=== PATIENT | male | born 1975 | race Caucasian/White ===

== ENCOUNTER 2019-01-04 13:06 | Observation (INO) ==
--- NOTE | 2019-01-04 13:56 | Emergency Department Note ---
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 Since then patient has had neck pain and shoulder pain, has continued to go to work. Patient has had difficulty sleeping due to the pain which he rates as throbbing in nature and 8 out of 10 in severity. Today patient asked his to take him to urgent care because he did not feel well from not being able to sleep and having the pain, while he was at urgent care he stood up after he was being called and his right leg fell out from underneath him, and since then he has been unable to really lift the leg, and has had decreased sensation in the leg. Patient is denying headache, chest pain, shortness of breath, vomiting, constipation, diarrhea, abdominal pain, difficulty urinating. Pt states he feels a little nauseated from the pain. Pain Scale: 9 - Related Data Home Medications Medication Instructions Recorded Confirmed BuPROPion XL (24 HR) [Wellbutrin 150 mg PO DAILY 01/04/19 01/04/19 XL] Citalopram [CeleXA] 20 mg PO DAILY 01/04/19 01/04/19 Allergies Allergy/AdvReac Type Severity Reaction Status Date / Time No Known Allergies Allergy Verified 01/04/19 11:24 All systems ED: reviewed and negative except as stated. Constitutional: Denies: fever, chills Cardiovascular: Denies: chest pain Respiratory: Denies: cough, dyspnea, wheezes Gastrointestinal: Reports: nausea. Denies: abdominal pain, vomiting, diarrhea Genitourinary: Denies: urgency, dysuria Musculoskeletal: Reports: neck pain. Denies: back pain Integumentary: Denies: rash, abrasion Neurological: Reports: weakness, numbness, paresthesias. Denies: headache Psychiatric: Reports: anxiety, depression Endocrine: Denies: fatigue, heat or cold intolerance Hematological/Lymphatic: Denies: easy bleeding, easy bruising Allergic/Immunologic: Denies: facial swelling, urticaria Past Medical History - Past Medical History Medical history: Reports: no medical history, hypertension Psychiatric history: Reports: anxiety, depression - Social History Smoking Status: Never smoker Smokeless Tobacco Status: No Alcohol use: Reports: occasionally Drug use: Reports: none Physical Exam General: A&O x 3. No acute distress. Well developed, well nourished. Head: atraumatic, normocephalic. ENT: No conjunctival injection, no scleral icterus. PERRLA. EOMI. Oropharynx non- erythematous. mucous membranes moist. Neuro: no speech deficit, no facial droop, mentating well. CN II-XII grossly normal. christy UE 5/5, LLE 5/5, RLE 3/5. MSK: rotator cuff muscles strength intact bilaterally Pulm: Lungs CTAB A/P. No wheezes, rales, ronchi. Cardio: RRR no m/r/g. Chest not tender to palpation. Abd: Soft, non-distended. Normoactive bowel sounds. Non-tender to palpation. No guarding. Non rigid. Extremities: Radial pulses 2+ christy, dorsalis pedis/posterior tibialis 2+ christy. No LE edema. No cyanosis, clubbing. Skin: warm, dry, intact. No rashes. Psych: Appropriate mood and affect. Answers questions appropriately. Cooperative with exam. - General Limitations: no limitations General appearance: alert Course Course Narrative: Presentation concerning for herniated discs but sudden presentation is concerning for other neurologic findings. Will obtain Head CT, Cervical/Thoracic/Lumbar CT, CBC, BMP, CXR, EKG, Troponin. Suspect will need admission for MRI and further workup as he still is unable to use RLE from hip down. Vital Signs Temperature 98.7 F 01/04/19 13:14 Pulse Rate 81 01/04/19 13:14 Respiratory Rate 16 01/04/19 13:14 Blood Pressure 154/97 01/04/19 13:14 O2 Sat by Pulse Oximetry 98 01/04/19 13:14 Temperature 98.2 F 03/31/19 21:19 Pulse Rate 95 01/04/19 21:19 Respiratory Rate 16 01/04/19 21:19 Blood Pressure 111/72 01/04/19 21:19 O2 Sat by Pulse Oximetry 94 01/04/19 21:19 Oxygen Delivery Oxygen Delivery Room Air Medical Decision Making - MDM Narrative Medical decision making narrative: Pts MRI was concerning for cord compression of C-spine, so patient was admitted to orthopedics, Dr. Shelby, for further workup and treatment. Pt was given pain control while in the department, and his pain was brought under better control. Pt verbalized understanding and agreement with the plan. Pt remained stable while in the department. Pt was given an opportunity to ask questions and all of his concerns were addressed. - Medical Records Medical records reviewed: Yes I reviewed the patient's medical records. - Lab Data Lab results reviewed: Yes I reviewed the patient's lab results. Result diagrams: 01/04/19 14:57 01/04/19 14:57 Lab Results 01/04/19 01/04/19 Range/Units 14:57 14:57 WBC 9.2 (4.3-11.1) K/mcL RBC 5.27 (4.19-5.50) M/mcL Hgb 15.2 (12.9-16.9) g/dL Hct 46.2 (37.5-50.1) % MCV 87.7 (83.0-100.0) fL MCH 28.8 (28.0-33.3) pg MCHC 32.9 (31.6-35.5) g/dL RDW 13.7 (11.5-14.5) % Plt Count 275 (140-400) K/mcL MPV 8.9 L (9.4-12.4) fL Immature Gran % 0.3 (0-4) % Seg Neutrophils % 83.7 % Lymphocytes % 9.0 % Monocytes % 4.8 % Eosinophils % 1.4 % Basophils % 0.8 % Neutrophils # 7.7 (1.6-8.9) K/mcL Lymphocytes # 0.8 (0.6-4.6) K/mcL Monocytes # 0.4 (0.0-1.3) K/mcL Eosinophils # 0.1 (0.0-0.6) K/mcL Basophils # 0.1 (0.0-0.2) K/mcL Sodium 139 (136-145) mEq/L Potassium 4.2 (3.5-5.1) mEq/L Chloride 104 (98-107) mEq/L Carbon Dioxide 28 (23-29) mEq/L BUN 10 (6-20) mg/dL Creatinine 0.91 (0.70-1.30) mg/dL Est GFR ( Amer) > 60 (> 60) Est GFR (Non-Af Amer) > 60 (> 60) BUN/Creatinine Ratio 11 (6-26) Glucose 112 H (70-105) mg/dL Calculated Osmolality 288 (280-300) Calcium 9.3 (8.6-10.3) mg/dL Troponin I < 0.03 (< 0.04) ng/mL - EKG Data EKG #1 EKG attestation: Yes I reviewed and interpreted this EKG. EKG results narrative: HR 81, rhythm sinus, axis normal. IL 123, QRS 94, QTc 429. No evidence of ST elevation or depression. Attestation Statement - Attestation Attestation: Resident Attestation: I examined this patient and my medical decision making was reviewed with the Resident Physician. I agree with the documented findings, disposition and treatment plan as described except to the extent set forth below. We independently had [id number] contact with the patient. Patient presenting to the emergency department for evaluation of left-sided neck pain and right leg weakness. Overall the patient has a job requiring repetitive motion of the left arm. The patient heard a popping sensation. Patient states that he has been having pain within the cervical region. Overall went to urgent care to have it evaluated. Well training get up out of the chair patient had loss of use of the right leg. Patient is unable to get the right leg off the bed. Patient has decreased sensation to the right leg. Patient has no numbness or tingling throughout the groin. Rectal tone is intact. Due to the cervical pain with acute onset neurologic deficit of the right leg. Patient will undergo further immediate CT imaging as MRI orders are also placed for further evaluation of possible underlying nerve injury. If CT gives definitive answer, MRI will not be needed. Patient is not in significant pain. No pain medication required at this time. Patient will also undergo basic blood work secondary to requiring IV contrast. Case was discussed with Dr. Shelby. Patient be kept at her facility for likely OR tomorrow. Overall prognosis is good. This was relayed to the patient. Patient is agreeable to stay at her facility for further management. Patient understands the need for admission. All questions were answered at bedside.
[2019-01-04 15:12] LABS: Basophils # 0.1 K/mcL (0.0-0.2); Basophils % 0.8 %; Eosinophils # 0.1 K/mcL (0.0-0.6); Eosinophils % 1.4 %; Hematocrit 46.2 % (37.5-50.1); Hemoglobin 15.2 g/dL (12.9-16.9); Immature Granulocytes % 0.3 % (0-4); Lymphocytes # 0.8 K/mcL (0.6-4.6); Mean Corpuscular HGB Conc 32.9 g/dL (31.6-35.5); Mean Corpuscular Hemoglobin 28.8 pg (28.0-33.3); Mean Corpuscular Volume 87.7 fL (83.0-100.0); Mean Platelet Volume 8.9 fL (9.4-12.4); Monocytes # 0.4 K/mcL (0.0-1.3); Monocytes % 4.8 %; Neutrophils # 7.7 K/mcL (1.6-8.9); Platelet Count 275 K/mcL (140-400); Red Blood Count 5.27 M/mcL (4.19-5.50); Red Cell Distribution Width 13.7 % (11.5-14.5); Segmented Neutrophils % 83.7 %
[2019-01-04 15:30] LABS: BUN/Creatinine Ratio 11 (6-26); Blood Urea Nitrogen 10 mg/dL (6-20); Calcium 9.3 mg/dL (8.6-10.3); Carbon Dioxide 28 mEq/L (23-29); Chloride 104 mEq/L (98-107); Glucose 112 mg/dL (70-105); Osmolality,Calculated 288 (280-300); Potassium 4.2 mEq/L (3.5-5.1); Sodium 139 mEq/L (136-145); Troponin I < 0.03 ng/mL (< 0.04); eGFR For Non-African Americans > 60 (> 60)
[2019-01-04] MEDS ORDERED: Gadolinium Contrast Agent (WT Based) IV PRN (15:31)
[2019-01-04] MEDS ORDERED: *HR* OxyCODONE Immed Rel 5 MG TABLET PO ONE (15:54)
[2019-01-04 22:23] LABS: INR 1.1
--- NOTE | 2019-01-05 00:26 | Internal Medicine Consult Note ---
Date of Encounter: 01/04/19 Time of Encounter: 22:30 - Assessment and Plan (1) Disc disorder of cervical region Current Visit: Yes Status: Acute Assessment and plan: Acute bulging disc in neck. Probable surgery. Hospitalists consulted for surgical clearance. EKG shows SR. Echocardiogram ordered d/t presence of regular irregular HR. No hx of cardiac disease dxd. Only PMH is anxiety and depression. Revised cardiac risk index for preoperative risk: 3.9% based on no high risk surgery, no history of ischemic heart disease, no history of congestive heart failure, history of cerebrovascular disease, no preoperative treatment with insulin, no preoperative creatinine greater than 2 mg/dL. Pt. is high risk for further morbidity and complications based on current inability to use BLEs which has progressed over the past several days, presence of murmur, current morbid obesity, hx of tobacco abuse and current use of dip. Inpatient. (2) Inability to walk Current Visit: Yes Status: Acute Assessment and plan: Acute inability to walk that began today while in the ED. Pt. reports bulging disc in cervical region. Unable to raise legs off of bed and reports numbness/tingling in BLEs. Bed rest. Falls/safety precautions. Up with assist post-surgery. (3) Neck pain Current Visit: Yes Status: Acute Assessment and plan: Acute neck pain d/t bulging disc in neck. Probable surgery. Hospitalists consulted for surgical clearance. (4) Numbness and tingling Current Visit: Yes Status: Acute Assessment and plan: Acute numbness/tingling in BLEs. Severe weakness present. Bed rest. Falls/safety precautions. Up with assist only post-surgery. (5) Anxiety and depression Current Visit: Yes Status: Chronic Assessment and plan: Hx of chronic anxiety and depression. SSRI continuation contraindicated prior to surgical procedures, so medications held until post-surgery. (6) DVT prophylaxis Current Visit: Yes Status: Acute Assessment and plan: Bilateral SCDs on LEs for DVT prophylaxis d/t probable surgery. - Time Spent With Patient Total time spent is greater than 50% in coordination of care (as documented) at patient's floor/unit and/or counseling patient: Greater than 35 minutes Internal Medicine - CN: HPI - Data of Consult Patient: new to practice Consult date: 01/04/19 Requesting Physician: James Shelby Jr MD - Consult Narrative Reason for consult: Pre-surgery clearance History of present illness: Mr. Gonzalez is a 43 year old male w/PMH of depression presents for Hospitalist consult for pre-surgery clearance by Dr. Shelby. 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 Patient stated he had minor neck and shoulder discomfort which progressed over several days. Upon arriving to the ED today patient became unable to walk and felt weakness and numbness/tingling in his bilateral lower extremities. Patient denies previous symptoms such as this. Denies any other medical history. Patient denies recent illness, fever, ch ills, nausea, vomiting, headache, changes in vision, unusual bleeding, abdominal pain, diarrhea, constipation, cough, chest pain, chest congestion, shortness of breath, dizziness, lightheadedness, pre-syncope, or syncope. Past Med Surg Social Fam HX - Past Medical History Source: patient, old records reviewed, obtained from family Medical history: no medical history Psychiatric history: anxiety, depression - Past Surgical History Surgical History: tonsilectomy - Social History Smoking Status: Former smoker Packs per day: 2 Packs per week - Reports quitting 15 years ago Smokeless Tobacco Status: Yes (Dip) Alcohol use: occasionally Drug use: none Occupational status: employed Current living situation: Home, With Family Activity Level: Independent ambulation Recent Out of Country Travel Within the Last 8 Weeks: No Exposure or Possible Exposure to Illness During Travel: No - Family History Father Race: Family Member Ethnicity: Non- Living Status: Still Living Hx Family Cardiac Disorders: Yes (HTN) Hx Family Respiratory Disorders: Yes (COPD) Mother Race: Family Member Ethnicity: Non- Living Status: Still Living Hx Family Medical Disorders: No Brother Race: Family Member Ethnicity: Non- Living Status: Still Living Hx Family Cardiac Disorders: Yes (HTN) - Constitutional Constitutional: as per HPI, fatigue, weakness - EENT Eyes: as per HPI Ears: as per HPI Nose, mouth and throat: as per HPI - Breasts Breasts: as per HPI - Cardiovascular Cardiovascular ROS IM: as per HPI - Respiratory Respiratory: as per HPI - Gastrointestinal Gastrointestinal: as per HPI - Genitourinary Genitourinary ROS male: as per HPI, urinary hesitancy - Musculoskeletal Musculoskeletal ROS IM: as per HPI, neck pain, numbness, tingling - Integumentary Integumentary IM: as per HPI - Neurological Neurological ROS: as per HPI - Psychiatric Psychiatric: anxiety, depression - Endocrine Endocrine IM: as per HPI - Hematologic/Lymphatic Hematologic/Lymphatic: as per HPI - Allergic/Immunologic Allergic/Immunologic: as per HPI Internal Medicine - CN: Meds BuPROPion XL (24 HR) [Wellbutrin XL] 150 mg PO DAILY 01/04/19 [History] Citalopram [CeleXA] 20 mg PO DAILY 01/04/19 [History] Allergy/AdvReac Type Severity Reaction Status Date / Time No Known Allergies Allergy Verified 01/04/19 11:24 Hospitalist - CN: Exam - Constitutional Vitals: Temp Pulse Resp BP Pulse Ox 98.1 F 91 16 132/78 95 01/04/19 23:17 01/04/19 23:17 01/04/19 23:17 01/04/19 23:17 01/04/19 23:17 General appearance IM: Present: cooperative, mild distress (Numbness, tingling in BLEs, weakness in UEs and LEs (worse in LEs)), A&O X 3, morbidly obese, pleasant, answers questions appropriately Exam: Patient examined at bedside. UE weakness on exam that is equal bilaterally. [employer] consistent but weaker than expected. No pronator drift, focal deficits, slurred speech noted. Pt. unable to lift legs off of bed. Pt. is able to feel soft and sharp touch to BLEs, but severe weakness present along w/numbness and tingling. Denies any other sx at this time. VS: 98.2 temp, HR 95, RR 16, BP 111/72, 94% SPO2 on room air. - Head Head exam: Present: atraumatic - Eye Eye exam: Present: normal appearance, PERRL, conjuntiva pink, sclera anicteric Pupils: Present: normal accommodation, PERRL - ENT ENT exam: Present: normal exam - Neck Neck exam general surgery: Present: normal inspection - Respiratory Respiratory exam: Present: CTAB - Cardiovascular Cardiovascular exam IM: Present: irregular rhythm Additional comments: Pause in HR at approx every 21st to 22nd beat. Pt. reports periods of flutter. - GI/Abdominal GI/Abdominal exam IM: Present: soft, no peritoneal signs - Rectal Rectal exam: Present: deferred - Additional comments: exam deferred. - Extremities Exam Additional comments: LE weakness to the point where pt. cannot raise legs off of bed. - Neurological Exam Neurological exam: Present: alert, oriented X3 - Psychiatric Psychiatric exam: Present: normal affect, normal mood - Skin Skin exam IM: Present: dry, intact Internal Medicine - CN: Reslt - Labs CBC & Chem 7: 01/04/19 14:57 01/04/19 14:57 Labs: Short CBC 01/04/19 Range/Units 14:57 WBC 9.2 (4.3-11.1) K/mcL Hgb 15.2 (12.9-16.9) g/dL Hct 46.2 (37.5-50.1) % Plt Count 275 (140-400) K/mcL Neutrophils # 7.7 (1.6-8.9) K/mcL BMP 01/04/19 14:57 Sodium 139 Potassium 4.2 Chloride 104 Carbon Dioxide 28 BUN 10 Creatinine 0.91 Glucose 112 H Calcium 9.3 Cardiac Enzymes 01/04/19 Range/Units 14:57 Troponin I < 0.03 (< 0.04) ng/mL - ABG Interpretation ABG results: PT/INR, D-dimer PT 12.0 Seconds (9.4-12.1) 01/04/19 21:51 - EKG Data EKG shows normal: sinus rhythm - EKG Data Prior EKG available for review: no EKG comments: 01/05/19 06:29 EKG dated 01/04/19 shows sinus rhythm. - Impressions Impressions Cervical Spine CT 01/04/19 13:22 IMPRESSION: No acute abnormality of the cervical spine. D/ / Freddy Mitchell MD / Freddy Mitchell MD Interpreting Provider: Freddy Mitchell MD Head CT 01/04/19 13:22 IMPRESSION: No acute intracranial abnormality. D/ / Freddy Mitchell MD / Freddy Mitchell MD Interpreting Provider: Freddy Mitchell MD Lumbar Spine CT 01/04/19 13:22 IMPRESSION: Unremarkable non-contrast CT of the lumbar spine. D/ / Ronald Moon MD / Ronald Moon MD Interpreting Provider: Ronald Moon MD Thoracic Spine CT 01/04/19 13:30 IMPRESSION: Unremarkable CT of the thoracic spine. D/ / Freddy Mitchell MD / Freddy Mitchell MD Interpreting Provider: Freddy Mitchell MD Chest X-Ray 01/04/19 13:45 IMPRESSION: Bibasilar atelectasis D/ / Abran Best MD / Abran Best MD Interpreting Provider: Abran Best MD Cervical Spine MRI 01/04/19 15:31 IMPRESSION: Multilevel degenerative disc disease throughout the cervical spine as described. Findings are greatest at C6-7 where there is a large central disc herniation with severe cord compression and canal narrowing. See above for details of each level. The findings were sent to the Radiology Results Communication [facility] at 7:20 pm on 01/04/2019to be communicated to a licensed caregiver. D/ / James Rolle Interpreting Provider: James Rolle Lumbar Spine MRI 01/04/19 15:31 IMPRESSION: Thoracic spine: Multilevel degenerative disc disease in the thoracic spine as described. See above for details of each level. There is no pathologic enhancement in the thoracic spine Lumbar spine: Multilevel degenerative disc disease throughout the lumbar spine as described. There is no pathologic enhancement in the lumbar spine. See above for details of each level D/ / James Rolle / James Rolle Interpreting Provider: James Rolle Thoracic Spine MRI 01/04/19 15:31 IMPRESSION: Thoracic spine: Multilevel degenerative disc disease in the thoracic spine as described. See above for details of each level. There is no pathologic enhancement in the thoracic spine Lumbar spine: Multilevel degenerative disc disease throughout the lumbar spine as described. There is no pathologic enhancement in the lumbar spine. See above for details of each level D/ / James Rolle / James Rolle Interpreting Provider: James Rolle - Diagnostic Studies Other Images Additional comments: Impressions Cervical Spine CT 01/04/19 13:22 IMPRESSION: No acute abnormality of the cervical spine. D/ / Freddy Mitchell MD / Freddy Mitchell MD Interpreting Provider: Freddy Mitchell MD Lumbar Spine CT 01/04/19 13:22 IMPRESSION: Unremarkable non-contrast CT of the lumbar spine. D/ / Ronald Moon MD / Ronald Moon MD Interpreting Provider: Ronald Moon MD Thoracic Spine CT 01/04/19 13:30 IMPRESSION: Unremarkable CT of the thoracic spine. D/ / Freddy Mitchell MD / Freddy Mitchell MD Interpreting Provider: Freddy Mitchell MD Cervical Spine MRI 01/04/19 15:31 IMPRESSION: Multilevel degenerative disc disease throughout the cervical spine as described. Findings are greatest at C6-7 where there is a large central disc herniation with severe cord compression and canal narrowing. See above for details of each level. The findings were sent to the Radiology Results Communication Center at 7:20 pm on 01/04/2019to be communicated to a licensed caregiver. D/ / James Rolle / James Rolle Interpreting Provider: James Rolle Lumbar Spine MRI 01/04/19 15:31 IMPRESSION: Thoracic spine: Multilevel degenerative disc disease in the thoracic spine as described. See above for details of each level. There is no pathologic enhancement in the thoracic spine Lumbar spine: Multilevel degenerative disc disease throughout the lumbar spine as described. There is no pathologic enhancement in the lumbar spine. See above for details of each level D/ / James Rolle / James Rolle Interpreting Provider: James Rolle Thoracic Spine MRI 01/04/19 15:31 IMPRESSION: Thoracic spine: Multilevel degenerative disc disease in the thoracic spine as described. See above for details of each level. There is no pathologic enhancement in the thoracic spine Lumbar spine: Multilevel degenerative disc disease throughout the lumbar spine as described. There is no pathologic enhancement in the lumbar spine. See above for details of each level D/ / James Rolle / James Rolle Interpreting Provider: James Rolle Chest x-ray Additional comments: Impressions Chest X-Ray 01/04/19 13:45 IMPRESSION: Bibasilar atelectasis D/ / Abran Best MD / Abran Best MD Interpreting Provider: Abran Best MD CT scan - head Additional comments: Impressions Head CT 01/04/19 13:22 IMPRESSION: No acute intracranial abnormality. D/ / rFeddy Mitchell MD / Freddy Mitchell MD Interpreting Provider: Freddy Mitchell MD Consult Discharge Plan - Plan Referrals: Yonathan Cho MD [Primary Care Provider] -
[2019-01-05] MEDS ORDERED: *HR* HYDROcodone/Acet 5/325 mg TABLET PO PRN (01:33)
[2019-01-05] MEDS ORDERED: Acetaminophen 325 MG TABLET PO PRN ×2 (01:33→20:34)
[2019-01-05] MEDS ORDERED: *HR* OxyCODONE Immed Rel 5 MG TABLET PO PRN (01:34)
--- NOTE | 2019-01-05 07:49 | Spine - History & Physical Rep ---
Date of Encounter: 01/05/19 Time of Encounter: 07:46 Assessment and Plan (1) Cervical disc herniation Current visit: Yes Status: Acute On exam the patient is awake and alert complaining of some neck pain and mild distress. Afebrile vital signs stable. Extraocular muscles are intact. Trachea is midline. Neck is supple. There is no JVD. Lungs are clear. Cardiovascular is regular rate and rhythm. Abdomen is soft nontender nondistended. His hips move symmetrically. He is unable to lift his legs off the bed bilaterally. His strength is 2 out of 5 on a motor scale in these muscle groups. This includes hamstrings, quadriceps, dorsiflexion, p lantarflexion. He has an equivocal Fercho sign. He has no clonus. Sensations intact to light touch in the lower extremities. MRI of the cervical, thoracic, and lumbar spine reveals severe stenosis and cord compression in part due to large disc herniation at C6-7. There are multilevel degenerative changes in the lumbar spine with multilevel foraminal stenosis but no severe thecal sac compression. Impression: 1) cervical disc herniation 2) cervical stenosis 3) spinal cord compression 4) bilateral leg weakness 5) inability to walk Plan: Due to his concerning severe weakness and risk for further or permanent neurologic injury I find it reasonable consider surgery in the form of an anterior cervical decompression and fusion C6-7. Risks benefits possible competitions and alternatives were discussed and the patient would like to proceed. Patient will undergo medical optimization and clearance measures prior to surgical intervention. (2) Cervical stenosis of spinal canal Current visit: Yes Status: Acute (3) Spinal cord compression Current visit: Yes Status: Acute (4) Leg weakness, bilateral Current visit: Yes Status: Acute History of Present Illness Chief complaint: Unable to walk or move her legs, leg weakness, neck pain HPI: Mr. Gonzalez is a 43 year old male who reports pain in neck which occurred while at work turning crank on a machine his neck popped several times several days ago. Patient stated he had neck and predominantly left shoulder discomfort which progressed over several days. He also had paresthesias in the bilateral lower extremities. This progressed such that he was unable to move his legs or walk so he came to the emergency department. Workup by the emergency department revealed spinal cord compression so he was admitted for definitive management. He denies fevers chills or bowel bladder symptomatology. Past Med Surg Social Fam HX - Past Medical History Medical history: no medical history Psychiatric history: anxiety, depression - Past Surgical History Surgical History: tonsilectomy - Social History Smoking Status: Former smoker Packs per day: 2 Packs per week - Reports quitting 15 years ago Smokeless Tobacco Status: Yes (Dip) Alcohol use: occasionally Drug use: none - Family History Father Race: Family Member Ethnicity: Non- Living Status: Still Living Hx Family Cardiac Disorders: Yes (HTN) Hx Family Respiratory Disorders: Yes (COPD) Mother Race: Family Member Ethnicity: Non- Living Status: Still Living Hx Family Medical Disorders: No Brother Race: Family Member Ethnicity: Non- Living Status: Still Living Hx Family Cardiac Disorders: Yes (HTN) Medications and Allergies BuPROPion XL (24 HR) [Wellbutrin XL] 150 mg PO DAILY 01/04/19 [History] Citalopram [CeleXA] 20 mg PO DAILY 01/04/19 [History] Allergy/AdvReac Type Severity Reaction Status Date / Time No Known Allergies Allergy Verified 01/04/19 11:24 Results - Labs Result Diagrams: 01/04/19 14:57 01/04/19 14:57 Labs: Abnormal lab results MPV 8.9 fL (9.4-12.4) L 01/04/19 14:57 Glucose 112 mg/dL (70-105) H 01/04/19 14:57 H & H 01/04/19 Range/Units 14:57 Hgb 15.2 (12.9-16.9) g/dL Hct 46.2 (37.5-50.1) % All other labs normal.
[2019-01-05] MEDS ORDERED: Bacitracin 50,000 UNIT, Polymyxin B Sulfate 500,000 UNIT, Sodium Chloride IRRigation 1,... IR ONE (08:00)
--- NOTE | 2019-01-05 15:43 | Anesthesia Evaluation PreOp ---
Date of Encounter: 01/05/19 Time of Encounter: 15:45 - Past History Planned Operation: ACDF C6-7 Cardiac History: HTN Pulmonary History: Denies Any Significant HX CURRICULUM COACH History: Denies Any Significant HX Other Medical History: Denies Any Significant HX, Other (Obese) Anesthesia History: No Prior Anesthetic Complications Alcohol Use: occasionally Drug use: none Medications and Allergies BuPROPion XL (24 HR) [Wellbutrin XL] 150 mg PO DAILY 01/04/19 [History] Citalopram [CeleXA] 20 mg PO DAILY 01/04/19 [History] Allergy/AdvReac Type Severity Reaction Status Date / Time No Known Allergies Allergy Verified 01/04/19 11:24 - Meds/Allergy Pre-op Review Medications Reviewed: Yes Allergies Reviewed: Yes Beta Blockers on Current Med List: No Anesthesia Results - Labs 01/04/19 14:57 01/04/19 14:57 - Imaging EKG: report reviewed (SR) Additional studies: ECHO EF60%, no pulm htn, no valvular dysfunction Anesthesia Exam O2 Sat Height 1.73 m Weight 119.5 kg Weight 119.6 kg O2 Sat by Pulse Oximetry 95 O2 Sat by Pulse Oximetry 97 O2 Sat by Pulse Oximetry 96 O2 Sat by Pulse Oximetry 95 O2 Sat by Pulse Oximetry 94 O2 Sat by Pulse Oximetry 96 O2 Sat by Pulse Oximetry 98 Vital Signs Temp Pulse Resp BP Pulse Ox 98.7 F 81 16 154/97 98 01/04/19 13:14 01/04/19 13:14 01/04/19 13:14 01/04/19 13:14 01/04/19 13:14 Height: 5'8 Weight: 263 lbs NPO (# of Hours): MN Pain Scale: 0 - HEENT Pupil (Motor): Pupils equal, EOMI Mallampati: III Teeth: Normal Oral Opening: Less than or equal to 3 (minimal neck extension) - CURRICULUM COACH LOC: Oriented CURRICULUM COACH Motor: Deficit RUE (slight weakness), Deficit LUE (slight weakness), Deficit RLE (weakness), Deficit LLE (paresthesia) CURRICULUM COACH Sensory: Normal: RUE, LUE, LLE, Face, Deficit: RLE (paresthesia) - Cardiac Rhythm: Regular Murmur: None JVD: No Carotid Bruit: No - Pulmonary Breath Sounds: bilateral Clear Respiratory Effort: Symmetrical Anesthesia Assess/Plan ASA Score: 2 Level of consciousness: Cooperative, Oriented Anesthetic Plan: General Autologous Blood: No Monitoring Plan: Standard Monitors Recovery Plan: PACU (Discussed GA, agrees to proceed)
[2019-01-05] MEDS ORDERED: Acetaminophen IV 1,000 MG/100 ML INFUS..BTL ONE (15:49)
[2019-01-05] MEDS ORDERED: Famotidine 20 MG/2 ML VIAL ONE (15:49)
[2019-01-05] MEDS ORDERED: *HR* Midazolam HCl 2 MG/2 ML VIAL ONE (16:28)
[2019-01-05] MEDS ORDERED: *HR* FentaNYL (PF) 100 MCG/2 ML VIAL ONE (16:28)
[2019-01-05] MEDS ORDERED: *HR* Propofol 200 MG/20 ML VIAL IVP ONE (16:28)
[2019-01-05] MEDS ORDERED: Ondansetron 4 MG/2 ML VIAL ONE (16:30)
[2019-01-05] MEDS ORDERED: *HR* Succinylcholine 200 MG/10 ML VIAL IVP ONE (16:30)
[2019-01-05] MEDS ORDERED: Lidocaine -MPF 2% 2 ML VIAL ONE (16:30)
[2019-01-05] MEDS ORDERED: Dexamethasone 4 MG/ML VIAL ONE (16:30)
[2019-01-05] MEDS ORDERED: *HR* Remifentanil 1 MG VIAL IVP ONE ×2 (16:32)
[2019-01-05] MEDS ORDERED: Propofol 500 MG/50 ML INFUS..BTL ONE ×2 (16:42→17:23)
[2019-01-05] MEDS ORDERED: EPHEDrine 50 MG/ML VIAL ONE (17:20)
[2019-01-05] MEDS ORDERED: *HR* HYDROMORPHONE 2 MG/ML VIAL ONE (18:43)
--- NOTE | 2019-01-05 18:52 | Event Note ---
Date of Encounter: 01/05/19 Time of Encounter: 11:00 Patient seen and evaluated by nocturnalist earlier this morning and also eval uated by myself. Patient has been admitted to neurosurgery service for repair of cervical disc herniation. Patient should continue home medications for mood disorder. Will follow along for medical management.
--- NOTE | 2019-01-05 18:58 | Orthopedic Operative Note ---
Date of procedure: 01/05/19 Pre-op diagnosis: Cervical stenosis, spinal cord compression, leg weakness Post-op diagnosis: same Operation/Findings: Anterior cervical decompression and fusion C6-7: The patient was brought to the operating room and placed supine on the operating room table. Successful general endotracheal anesthesia intubation was performed. Neurophysiologic monitoring personnel placed leads on the upper and lower extremities as well as the cranium for EMG monitoring purposes. Appropriate baseline potentials were noted by the neurophysiologic monitoring staff. Goodman catheter was placed prior to positioning. Compression boots and stockings were placed for deep vein thrombosis prophylaxis. Padding was also placed all bony prominences including the ulnar nerve near the medial epicondyles of the elbows were appropriately padded. Mild traction was placed on the bilateral shoulders and taped into place. Preoperative antibiotics were administered. The area from the mandible bilaterally to the upper thoraces was prepped and draped in the usual sterile fashion. A transverse incision was made at the level of the cricoid cartilage which is approximately 3 cm in length and extended from the midline of the cervical spine laterally towards the sternocleidomastoid muscle on the left. We then performed standard medial approach to the carotid sheath. Sponges were used to tease the fascial medial to the sternocleidomastoid muscle while carefully controlling and palpating the carotid artery. Using careful dissection we were able to get to the level of the anterior vertebral bodies and longus coli muscles. The spinal needle was placed at the appropriate C6-7 level, and intraoperative radiograph was obtained which was a cervical spine lateral radiograph. The needle and radiograph confirmed we were at the correct C6-7 operative level. We further exposed this level by using Bovie cautery under the medial edge of the longus coli muscles to allow them to be retracted approximately 2 mm laterally on each side. An 11 blade was used to perform anterior discectomy at the appropriate C6-7 level after an initial annulotomy of the anterior longitudinal ligament and annulus was performed. Further disc material was removed with pituitary Rongeurs. Subsequently, Synthes pins were placed at the C6 and C7 vertebral bodies respectively to provide distraction. We then used a Trimline cervical retractor which was placed in both medial and lateral as well as inferior superior direction to allow full visualization of the appropriate C6-7 disc and C6 and C7 vertebral bodies. The Leica microscope was brought to the field and the remainder of the procedure was performed under the guidance of this microscope. Using pituitary rongeurs and small curettes, various micro-instruments, a full discectomy was performed at the appropriate C6-7 level. The posterior longitudinal ligament was encountered and appeared partially calcified. A portion of this ligament was removed. After complete and thorough discectomy and removal of spondylitic material was performed the endplates of the C6 and C7 vertebral bodies were prepared with a bur until allow bleeding of cancellous bone. A 9mm trial graft was evaluated and appeared to fit quite well within the excised disc space. A cortico-cancellus allograft of 9 mm was utilized, carefully tapped into place within the excised disc space with the aid of a bone tamp. It was seated approximately 2 mm from the anterior edge of the cortex of the adjacent vertebral bodies. A cervical plate was then placed on the anterior aspect of the C6 and C7 vertebral bodies. The plate was placed in the midline position after drilling four 13 mm self tapping screws and inserting them. They were locked in place using standard Venture plate maneuvers. At this point a lateral radiograph of the cervical spine was obtained and showed satisfactory position of the graft and plate. The wound was copiously irrigated and bleeders encountered were cauterized using Bovie cautery. Platysma was closed with interrupted 2-0 Vicryl sutures. Running 3-0 Monocryl suture was used for skin closure. Sterile dressing was placed over the neck wound. The patient was transferred to a hospital bed and extubated. The patient was noted to be fully motor and sensory intact in the recovery room at the end of the procedure. The medications. All sponge instrument and needle counts were correct at the end of the procedure. Anesthesia: GETA Surgeon: James Shelby Jr Was there an contract administrative assistant present: No Estimated blood loss (cc): 20 Specimen: None Condition: stable Disposition: PACU
[2019-01-05] MEDS ORDERED: *HR* HYDROmorphone (PF) 1 MG/ML SYRINGE IVP PRN (19:17)
[2019-01-05] MEDS ORDERED: Ondansetron 4 MG/2 ML VIAL IVP ONE (19:17)
--- NOTE | 2019-01-05 20:01 | Anesthesia Evaluation Post Op ---
Date of Encounter: 01/05/19 Time of Encounter: 20:01 - Vital Signs Vital Signs: Vital Signs/O2 Sat, Most Current Temp Pulse Resp BP Pulse Ox 99.1 F 105 13 144/89 96 01/05/19 19:50 01/05/19 19:50 01/05/19 19:50 01/05/19 19:50 01/05/19 19:50 - Lungs Lungs: Clear Ascult./Percussion - Airway Airway: Non-obstructed - Cardiovascular Regular Rate - Mental Status Mental Status: Alert & Oriented, Answers Appropriately - Pain Pain Scale: 2 Pain Scale used: Numeric (1 - 10) - Nausea Vomiting Nausea Vomiting: Not Present - Hydration Hydration: Ice chips, Goodman catheter - Discharge PostOp Status: Transfer Patient to floor
[2019-01-05] MEDS ORDERED: Naloxone 0.4 MG/ML INJ IVP PRN (20:34)
[2019-01-05] MEDS ORDERED: Ondansetron 4 MG/2 ML VIAL IVP PRN (20:34)
[2019-01-05] MEDS ORDERED: Ringers Solution, Lactated 1,000 ML IVC SCH (20:34)
[2019-01-05] MEDS ORDERED: Chloraseptic Spray 177 ML BOTTLE MM PRN (23:16)
--- NOTE | 2019-01-06 08:28 | Orthopedics Progress Note ---
Date of Encounter: 01/06/19 Time of Encounter: 08:40 - Assessment and Plan (1) Status post cervical spinal fusion Current Visit: Yes Status: Acute (2) Cervical stenosis of spinal canal Current Visit: Yes Status: Chronic (3) Leg weakness, bilateral Current Visit: Yes Status: Chronic (4) Spinal cord compression Current Visit: Yes Status: Chronic Subjective Principal diagnosis: s/p ACDF Interval history: Date of procedure: 01/05/19 Pre-op diagnosis: Cervical stenosis, spinal cord compression, leg weakness Post-op diagnosis: same Operation/Findings: Anterior cervical decompression and fusion C6-7 Patient admits to significant improvement in preoperative symptoms. Seen at bedside. Daughter, spouse, and father at bedside. Patient alert and oriented in no acute distress. Motion to b/l LE noted to be near full with exception of Right ankle lacking dorsiflexion. Foot drop ongoing. Posterior tibial pulses intact. Sensation b/l LE intact. No calf tenderness to palpation bilaterally. Labs and vitals reviewed. Continue postoperative care. Awaiting discharge recommendations from PT/OT eval. Objective Vital signs: Vital Signs Temp Pulse Resp BP Pulse Ox 01/06/19 07:22 98.3 F 82 16 125/77 96 01/06/19 02:20 98.5 F 79 16 124/80 93 01/05/19 23:20 98.0 F 100 19 135/85 98 01/05/19 23:02 98.3 F 101 16 118/77 95 01/05/19 22:20 98.0 F 101 19 133/85 98 01/05/19 21:20 98.5 F 109 19 130/83 98 01/05/19 20:50 98.3 F 103 18 132/83 99 01/05/19 20:20 99.0 F 99 18 128/84 99 01/05/19 20:00 99.1 F 102 12 139/88 94 01/05/19 19:50 99.1 F 105 13 144/89 96 01/05/19 19:40 105 15 145/87 97 01/05/19 19:30 112 12 143/88 96 01/05/19 19:20 99.5 F 110 16 147/93 95 01/05/19 15:43 81 15 115/76 95 01/05/19 10:30 97.9 F 70 16 144/71 95 Intake and Output 01/05/19 01/06/19 01/06/19 23:59 07:59 15:59 Intake Total 500 / 500 500 / 500 Output Total 395 / 395 725 / 725 Balance 105 / 105 -225 / -225 Intake: IV Fluids 100 / 100 Ancef 2,000 MG In 0.9 % Sodium 100 / 100 Chloride 100 ML @ 200 mls/hr IVPB Q8HR [facility] Rx#:[id number] Oral 400 / 400 500 / 500 Output: Emesis Catheter 375 / 375 725 / 725 Other: Weight 118.3 kg Patient Weight 01/06/19 23:59 Weight 118.3 kg - Labs CBC & BMP: 01/04/19 14:57 01/04/19 14:57 Labs: Abnormal lab results MPV 8.9 fL (9.4-12.4) L 01/04/19 14:57 Glucose 112 mg/dL (70-105) H 01/04/19 14:57 POC Glucose 101 mg/dL (70-99) H 01/05/19 11:58 Consult Discharge Plan - Plan Referrals: Yonathan Cho MD [Primary Care Provider] - Prescriptions: OxyCODONE Immed Rel [Roxicodone 5 MG] 5 mg PO Q6HR PRN 5 Days #20 tablet PRN Reason: Severe Pain Docusate Sodium [Colace] 100 mg PO BID 5 Days #10 capsule
--- NOTE | 2019-01-06 08:30 | Discharge Summary ---
Orders not resulted at time of discharge: Pending orders 01/06/19 08:05 XR cervical spine 2V [XR] Routine Date of Encounter: 01/06/19 - Hospital Course Hospital course: Mr. Gonzalez is a 43 year old male Date of procedure: 01/05/19 Pre-op diagnosis: Cervical stenosis, spinal cord compression, leg weakness Post-op diagnosis: same Operation/Findings: Anterior cervical decompression and fusion C6-7 OARRS reviewed - Time Spent with Patient Total time spent providing and/or coordinating discharge services: - Discharge Medications Prescriptions: New OxyCODONE Immed Rel [Roxicodone 5 MG] 5 mg PO Q6HR PRN 5 Days #20 tablet PRN Reason: Severe Pain Docusate Sodium [Colace] 100 mg PO BID 5 Days #10 capsule No Action Citalopram [CeleXA] 20 mg PO DAILY BuPROPion XL (24 HR) [Wellbutrin XL] 150 mg PO DAILY Home Medications: BuPROPion XL (24 HR) [Wellbutrin XL] 150 mg PO DAILY 01/04/19 [History] Citalopram [CeleXA] 20 mg PO DAILY 01/04/19 [History] Docusate Sodium [Colace] 100 mg PO BID 5 Days #10 capsule 01/06/19 [Rx] OxyCODONE Immed Rel [Roxicodone 5 MG] 5 mg PO Q6HR PRN 5 Days #20 tablet 01/06/19 [Rx] Allergies/Adverse Reactions: Allergy/AdvReac Type Severity Reaction Status Date / Time No Known Allergies Allergy Verified 01/04/19 11:24 Date of admission: 01/04/19 20:07 Primary care physician: Yonathan Cho MD Consults: 01/04/19 21:28 Consult to Hospitalist [CONS] Routine Consulting Provider: Hospitalist Lon Reason for Consult: Preoperative clearance Call Completed: Yes 01/05/19 20:28 Consult to Occupational Therapy [CONS] Routine Comment: Evaluate, develop and implement POC Reason for Consult: Pt. is status-post anterior cervical decompression and fusion of C6-7. Pt. unable to walk prior to procedure due to cervical disc herniation. Please assess pt. for ambulation strength, safety, stability, and possible rehabilitation/home assistive needs for post-discharge planning. Does patient have active BEDREST order?: Yes Is patient medically & hemodynamically stable?: Yes Patient assessed for mobility or mobilized this visit?: No Consult to Physical Therapy [CONS] Routine Comment: Evaluate, develop and implement POC Reason for Consult: Pt. is status-post anterior cervical decompression and fusion of C6-7. Pt. unable to walk prior to procedure due to cervical disc herniation. Please assess pt. for ambulation strength, safety, stability, and possible re habilitation/home assistive needs for post-discharge planning. Does patient have active BEDREST order?: Yes Is patient medically & hemodynamically stable?: Yes Patient assessed for mobility or mobilized this visit?: No 01/05/19 20:34 Consult to Occupational Therapy [CONS] Routine Comment: Evaluate, develop and implement POC Reason for Consult: Postoperative rehabilitation Does patient have active BEDREST order?: No Is patient medically & hemodynamically stable?: Yes Patient assessed for mobility or mobilized this visit?: No Consult to Physical Therapy [CONS] Routine Comment: Evaluate, develop and implement POC Reason for Consult: Postoperative rehabilitation Does patient have active BEDREST order?: No Is patient medically & hemodynamically stable?: Yes Patient assessed for mobility or mobilized this visit?: No Consult to Spine Navigator [CONS] [CONS] Routine Labs on day of discharge: Labs from last 24 hours 01/05/19 11:58 POC Glucose 101 H - Impressions ITS Impressions Cervical Spine CT 01/04/19 13:22 IMPRESSION: No acute abnormality of the cervical spine. D/ / Freddy Mitchell MD / Freddy Mitchell MD Interpreting Provider: Frdedy Mitchell MD Head CT 01/04/19 13:22 IMPRESSION: No acute intracranial abnormality. D/ / Freddy Mitchell MD / Freddy Mitchell MD Interpreting Provider: Freddy Mitchell MD Lumbar Spine CT 01/04/19 13:22 IMPRESSION: Unremarkable non-contrast CT of the lumbar spine. D/ / Ronald Moon MD / Ronald Moon MD Interpreting Provider: Ronald Moon MD Thoracic Spine CT 01/04/19 13:30 IMPRESSION: Unremarkable CT of the thoracic spine. D/ / Freddy Mitchell MD / Freddy Mitchell MD Interpreting Provider: Freddy Mitchell MD Chest X-Ray 01/04/19 13:45 IMPRESSION: Bibasilar atelectasis D/ / Abran Best MD / Abran Best MD Interpreting Provider: Abran Best MD Cervical Spine MRI 01/04/19 15:31 IMPRESSION: Multilevel degenerative disc disease throughout the cervical spine as described. Findings are greatest at C6-7 where there is a large central disc herniation with severe cord compression and canal narrowing. See above for details of each level. The findings were sent to the Radiology Results Communication Center at 7:20 pm on 01/04/2019to be communicated to a licensed caregiver. D/ / James Rolle / James Rolle Interpreting Provider: James Rolle Lumbar Spine MRI 01/04/19 15:31 IMPRESSION: Thoracic spine: Multilevel degenerative disc disease in the thoracic spine as described. See above for details of each level. There is no pathologic enhancement in the thoracic spine Lumbar spine: Multilevel degenerative disc disease throughout the lumbar spine as described. There is no pathologic enhancement in the lumbar spine. See above for details of each level D/ / James Rolle / James Rolle Interpreting Provider: James Rolle Thoracic Spine MRI 01/04/19 15:31 IMPRESSION: Thoracic spine: Multilevel degenerative disc disease in the thoracic spine as described. See above for details of each level. There is no pathologic enhancement in the thoracic spine Lumbar spine: Multilevel degenerative disc disease throughout the lumbar spine as described. There is no pathologic enhancement in the lumbar spine. See above for details of each level D/ / James Rolle / James Rolle Interpreting Provider: James Rolle Echocardiogram 01/05/19 13:00 Impressions: LVEF 60-65%. Mild left ventricular diastolic dysfunction. Normal right ventricular size and function. No significant valvular dysfunction. No pulmonary hypertension. Left Ventricular Wall Motion: Rest Echo Findings All wall segments showed normal motion. Findings: Study Quality * Technically sub-optimal due to poor echocardiographic windows. ECG Findings * Normal sinus rhythm. Left Ventricle * LVEF 60-65%. * Normal LV chamber size, wall thickness and systolic function. * Mild left ventricular diastolic dysfunction. * Definity echo contrast was not used. Right Ventricle * Normal right ventricular structure and function. Left Atrium * Normal left atrial size. Right Atrium * Normal right atrial size. Interatrial Septum * Interatrial septum not well evaluated. Aortic Valve * Aortic valve not well visualized. * No aortic stenosis. * No aortic regurgitation. Mitral Valve * Normal mitral valve structure. * No mitral stenosis. * No mitral regurgitation. Tricuspid Valve * Normal tricuspid valve structure. * No tricuspid stenosis. * Trace tricuspid regurgitation. * Estimated RA pressure is 8 mmHg. * Estimated RVSP is 23 mmHg. * No pulmonary hypertension. Pulmonic Valve * Pulmonic valve is not well visualized. * No pulmonic stenosis. * No pulmonic regurgitation. Aorta * Normally sized aortic root. Pericardium * The pericardium appears normal. IVC * The IVC is not dilated. * < 50% respiratory change. Cervical Spine X-Ray 01/05/19 17:50 IMPRESSION: Intraoperative cross-table lateral view has been obtained for localization purposes with distal tips of needles directed toward the superior endplate of C6 and anterior margin of C6-C7 intervertebral disc space as described above. D/ / 01/05/2019 18:23:05 Lucio Gambino MD / sara Interpreting Provider: Lucio Gambino MD Cervical Spine X-Ray 01/05/19 18:15 IMPRESSION: Single intraoperative lateral radiograph of the cervical spine as described above. D/ / Piyush Garrett MD / Piyush Garrett MD Interpreting Provider: Piyush Garrett MD - Patient Status Condition: Fair - Discharge Instructions Follow Up With: Yonathan Cho MD [Primary Care Provider] -
[2019-01-06] MEDS: BuPROPion XL (24 HR) 150 MG TABLET PO SCH (09:42)
--- NOTE | 2019-01-06 14:30 | Internal Med Progress Note ---
Hospitalist Progress Note - Encounter Date of Encounter: 01/06/19 Time of Encounter: 09:00 - Subjective Interval History: Patient feels fine. Said he come move both legs, which he can not move previously. S/P cervical spine surgery. No fever. No signs of infection. - Exam Vitals: Temp Pulse Resp BP Pulse Ox 98.1 F 91 14 131/65 96 01/06/19 11:37 01/06/19 11:37 01/06/19 11:37 01/06/19 11:37 01/06/19 11:37 Exam: Pt is AAO x 3, in NAD HEENT: NC/AT, PERRL Neck: Supple, no JVD, no LAD, s/p surgery Lungs: CTA b/l Heart: S1S2, RRR Abd: Soft, nontender, BS present Ext: ROM wnl, no pedal edema Neuro: No focal deficit - Assessment and Plan (1) Neck pain Current Visit: Yes Status: Acute Assessment and Plan: Acute neck pain d/t bulging disc in neck. s/p surgery. - Patient is doing well. Hospitalist will sign off. Call for questions please. Thank you for the consult. (2) Numbness and tingling Current Visit: Yes Status: Acute (3) Disc disorder of cervical region Current Visit: Yes Status: Acute (4) Inability to walk Current Visit: Yes Status: Acute (5) Anxiety and depression Current Visit: Yes Status: Chronic Assessment and Plan: Hx of chronic anxiety and depression. Continue home medications (6) DVT prophylaxis Current Visit: Yes Status: Acute - Time Spent with Patient Total time spent is greater than 50% in coordination of care (as documented) at patient's floor/unit and/or counseling patient: Internal Medicine: Result - Labs CBC & Chem 7: 01/04/19 14:57 01/04/19 14:57 - ABG Interpretation ABG results: PT/INR, D-dimer PT 12.0 Seconds (9.4-12.1) 01/04/19 21:51 - Impressions Impressions Echocardiogram 01/05/19 13:00 Impressions: LVEF 60-65%. Mild left ventricular diastolic dysfunction. Normal right ventricular size and function. No significant valvular dysfunction. No pulmonary hypertension. Left Ventricular Wall Motion: Rest Echo Findings All wall segments showed normal motion. Findings: Study Quality * Technically sub-optimal due to poor echocardiographic windows. ECG Findings * Normal sinus rhythm. Left Ventricle * LVEF 60-65%. * Normal LV chamber size, wall thickness and systolic function. * Mild left ventricular diastolic dysfunction. * Definity echo contrast was not used. Right Ventricle * Normal right ventricular structure and function. Left Atrium * Normal left atrial size. Right Atrium * Normal right atrial size. Interatrial Septum * Interatrial septum not well evaluated. Aortic Valve * Aortic valve not well visualized. * No aortic stenosis. * No aortic regurgitation. Mitral Valve * Normal mitral valve structure. * No mitral stenosis. * No mitral regurgitation. Tricuspid Valve * Normal tricuspid valve structure. * No tricuspid stenosis. * Trace tricuspid regurgitation. * Estimated RA pressure is 8 mmHg. * Estimated RVSP is 23 mmHg. * No pulmonary hypertension. Pulmonic Valve * Pulmonic valve is not well visualized. * No pulmonic stenosis. * No pulmonic regurgitation. Aorta * Normally sized aortic root. Pericardium * The pericardium appears normal. IVC * The IVC is not dilated. * < 50% respiratory change. Cervical Spine X-Ray 01/05/19 17:50 IMPRESSION: Intraoperative cross-table lateral view has been obtained for localization purposes with distal tips of needles directed toward the superior endplate of C6 and anterior margin of C6-C7 intervertebral disc space as described above. D/ / 01/05/2019 18:23:05 Lucio Gambino MD / [facility] Interpreting Provider: Lucio Gambino MD Cervical Spine X-Ray 01/05/19 18:15 IMPRESSION: Single intraoperative lateral radiograph of the cervical spine as described above. D/ / Piyush Garrett MD / Piyush Garrett MD Interpreting Provider: Piyush Garrett MD Cervical Spine X-Ray 01/06/19 08:05 IMPRESSION: Anterior fusion at C6-C7 without hardware complication. D/ / Han Lou MD / Han Lou MD Interpreting Provider: Han Lou MD Consult Discharge Plan - Plan Referrals: Yonathan Cho MD [Primary Care Provider] - Prescriptions: OxyCODONE Immed Rel [Roxicodone 5 MG] 5 mg PO Q6HR PRN 5 Days #20 tablet PRN Reason: Severe Pain Docusate Sodium [Colace] 100 mg PO BID 5 Days #10 capsule
[2019-01-07] MEDS: BuPROPion XL (24 HR) 150 MG TABLET PO SCH (08:52)
--- NOTE | 2019-01-07 16:18 | Urology - Consult Note ---
Date of Encounter: 01/07/19 Time of Encounter: 16:15 - Assessment and Plan (1) Urinary retention Current Visit: Yes Status: Acute Assessment and plan: I suspect the urinary retention is related to nerve deficits related to his re cent spinal issues. Majority of his motor deficits are quickly improving and I suspect the bladder will recover function in the near future. I also discussed that this can be difficult to predict and the urinary retention may resolve in days but could last 4 months. We discussed an indwelling catheter but I do not feel this is the appropriate management. I recommend continuing intermittent catheterization every 8 hours if unable to urinate. Orders need to be provided to the rehabilitation center for this to continue if he is still having difficulty voiding. I did discuss self intermittent catheterization and at first he seemed unwilling but does understand that if the condition does not resolve in a timely fashion that he will need to learn how to catheterize himself. We discussed starting tamsulosin but ultimately the patient wishes to observe as this is likely a neurologic issue. Patient will require urology follow-up 4-8 weeks after discharge. Urology CN:HPI Consult date: 01/07/19 History of present illness: Patient was admitted earlier in the week with acute neurologic deficits and underwent a Anterior cervical decompression and fusion C6-7. His neurologic function is slowly returning. Currently he states he still has some numbness around his mid section area he has an urge to urinate but has been unable to void requiring intermittent catheterization. He states he did have a small erection yesterday. Normal bowel movements. No previous difficulty urinating Past Med Surg Social Fam HX - Past Medical History Medical history: no medical history Psychiatric history: anxiety, depression - Past Surgical History Surgical History: tonsilectomy - Social History Smoking Status: Former smoker Packs per day: 2 Packs per week - Reports quitting 15 years ago Smokeless Tobacco Status: Yes (Dip) Alcohol use: occasionally Drug use: none - Family History Father Race: Family Member Ethnicity: Non- Living Status: Still Living Hx Family Cardiac Disorders: Yes (HTN) Hx Family Respiratory Disorders: Yes (COPD) Mother Race: Family Member Ethnicity: Non- Living Status: Still Living Hx Family Medical Disorders: No Brother Race: Family Member Ethnicity: Non- Living Status: Still Living Hx Family Cardiac Disorders: Yes (HTN) Medications and Allergies BuPROPion XL (24 HR) [Wellbutrin XL] 150 mg PO DAILY 01/04/19 [History] Citalopram [CeleXA] 20 mg PO DAILY 01/04/19 [History] Docusate Sodium [Colace] 100 mg PO BID 5 Days #10 capsule 01/06/19 [Rx] OxyCODONE Immed Rel [Roxicodone 5 MG] 5 mg PO Q6HR PRN 5 Days #20 tablet 01/06/19 [Rx] Allergy/AdvReac Type Severity Reaction Status Date / Time No Known Allergies Allergy Verified 01/04/19 11:24 Review of Systems - Constitutional no chills, no fever(s) - EENT Nose, mouth and throat: no dizziness - Cardiovascular no chest pain - Respiratory no cough - Gastrointestinal no abdominal pain, no nausea, no vomiting - Genitourinary difficulty urinating - Musculoskeletal back pain - Integumentary no erythema - Neurological no confusion - Psychiatric no anxiety - Hematologic/Lymphatic no easy bleeding - Allergic/Immunologic no throat swelling Exam Initial Vital Signs Temp Pulse Resp BP Pulse Ox 98.7 F 81 16 154/97 98 01/04/19 13:14 01/04/19 13:14 01/04/19 13:14 01/04/19 13:14 01/04/19 13:14 - General physical appearance Present: well developed, no distress - Eyes Present: PERRL, conjunctiva is clear - ENT Present: normal nares - Neck Present: no masses, no lymphadenopathy - Respiratory Present: normal respiratory effort - Cardiovascular Cardiovascular exam IM: RRR - Abdomen Abdomen: Present: soft. Absent: tender, suprapubic tenderness - Integumentary Present: no rash, no growths - Neurologic Present: normal coordination. Absent: disoriented, confused Urology Results - Labs 01/04/19 14:57 01/04/19 14:57 Abnormal lab results MPV 8.9 fL (9.4-12.4) L 01/04/19 14:57 Glucose 112 mg/dL (70-105) H 01/04/19 14:57 POC Glucose 101 mg/dL (70-99) H 01/05/19 11:58 All other labs normal. Consult Discharge Plan - Plan Referrals: Yonathan Cho MD [Primary Care Provider] - Prescriptions: OxyCODONE Immed Rel [Roxicodone 5 MG] 5 mg PO Q6HR PRN 5 Days #20 tablet PRN Reason: Severe Pain Docusate Sodium [Colace] 100 mg PO BID 5 Days #10 capsule
[2019-01-08] MEDS: BuPROPion XL (24 HR) 150 MG TABLET PO SCH (08:39)
[2019-01-08] MEDS: *HR* HYDROcodone/Acet 5/325 mg TABLET PO PRN ×2 (08:39→16:59)
--- NOTE | 2019-01-08 09:46 | Electrocardiograph Report ---
[address] [address] Test Date: 2019-01-04 Pat Name: Matteo Gonzalez Department: [id number] Room: [facility] Gender: M Liquid Loader: : 1975 Requested By: Viviana Hutton Order Number: [id number] Reading MD: Piyush Davila Measurements Intervals [place] Rate: 81 P: 16 OR: 123 QRS: 12 QRSD: 94 T: 24 QT: 369 QTc: 429 Interpretive Statements Sinus rhythm Electronically Signed On 01-08-2019 9:45:08 EDT by Piyush Davila
--- NOTE | 2019-01-08 12:56 | Orthopedics Progress Note ---
Date of Encounter: 01/08/19 Time of Encounter: 12:56 - Assessment and Plan (1) Status post cervical spinal fusion Current Visit: Yes Status: Acute (2) Cervical stenosis of spinal canal Current Visit: Yes Status: Chronic (3) Leg weakness, bilateral Current Visit: Yes Status: Chronic (4) Spinal cord compression Current Visit: Yes Status: Chronic (5) Urinary retention Current Visit: Yes Status: Acute Subjective Principal diagnosis: s/p ACDF Interval history: Date of procedure: 01/05/19 Pre-op diagnosis: Cervical stenosis, spinal cord compression, leg weakness Post-op diagnosis: same Operation/Findings: Anterior cervical decompression and fusion C6-7 Patient admits to continued significant improvement in preoperative symptoms. Seen at bedside. Daughter, spouse, and father at bedside. Patient alert and oriented in no acute distress. Motion to b/l LE noted to be near full with exception of Right ankle lacking dorsiflexion. Foot drop ongoing, though improved. Posterior tibial pulses intact. Sensation b/l LE intact. No calf tenderness to palpation bilaterally. Labs and vitals reviewed. Continue postoperative care. Awaiting discharge recommendations from PT/OT eval. Objective Vital signs: Vital Signs Temp Pulse Resp BP Pulse Ox 01/08/19 11:07 97.3 F L 91 16 01/08/19 08:00 97.8 F 88 16 146/94 01/08/19 06:31 98.4 F 86 18 126/80 94 01/08/19 04:26 98.3 F 79 17 115/71 96 01/07/19 21:49 99.3 F 86 20 131/82 92 01/07/19 19:29 98.7 F 96 16 124/78 94 01/07/19 15:43 98.5 F 80 16 116/75 94 Intake and Output 01/07/19 01/08/19 01/08/19 23:59 07:59 15:59 Intake Total 119 / 119 Output Total 700 / 700 900 / 900 Balance -700 / -700 -900 / -900 119 / 119 Intake: Oral 119 / 119 Output: Straight Cath 700 / 700 900 / 900 Other: Meal Breakfast Percent of Meal Consumed 35% - Labs CBC & BMP: 01/04/19 14:57 01/04/19 14:57 Labs: Abnormal lab results MPV 8.9 fL (9.4-12.4) L 01/04/19 14:57 Glucose 112 mg/dL (70-105) H 01/04/19 14:57 POC Glucose 101 mg/dL (70-99) H 01/05/19 11:58 Consult Discharge Plan - Plan Referrals: Yonathan Cho MD [Primary Care Provider] -
[2019-01-09] MEDS: *HR* HYDROcodone/Acet 5/325 mg TABLET PO PRN ×3 (02:33→14:36)
[2019-01-09] MEDS: BuPROPion XL (24 HR) 150 MG TABLET PO SCH (08:43)
--- NOTE | 2019-01-09 08:43 | Discharge Summary ---
Date of Encounter: 01/12/19 Time of Encounter: 09:00 - Discharge Diagnosis (1) Status post cervical spinal fusion Priority: Primary Status: Acute (2) Cervical stenosis of spinal canal Priority: Primary Status: Chronic (3) Leg weakness, bilateral Priority: Primary Status: Chronic (4) Spinal cord compression Priority: Primary Status: Chronic (5) Urinary retention Priority: Primary Status: Resolved - Hospital Course Hospital course: Mr. Gonzalez is a 43 year old male Date of procedure: 01/05/19 Pre-op diagnosis: Cervical stenosis, spinal cord compression, leg weakness Post-op diagnosis: same Operation/Findings: Anterior cervical decompression and fusion C6-7 The patient had an uneventful postoperative course. Progressed from intravenous analgesic needs to oral analgesic needs only. Remained neurovascularly intact and mobilized satisfactorily. All intraoperative and/or postoperative radiographic studies were satisfactory. Patient is discharged with plan for rehabilitation and follow-up in 2 weeks post discharge on analgesic medication and patient's home medications. - Time Spent with Patient Total time spent providing and/or coordinating discharge services: - Discharge Medications Prescriptions: New Cyclobenzaprine [Flexeril] 5 mg PO Q6H PRN 7 Days #28 tablet PRN Reason: muscle spasms Continue Citalopram [CeleXA] 20 mg PO DAILY BuPROPion XL (24 HR) [Wellbutrin Xl] 150 mg PO DAILY Home Medications: BuPROPion XL (24 HR) [Wellbutrin Xl] 150 mg PO DAILY 01/04/19 [History] Citalopram [CeleXA] 20 mg PO DAILY 01/04/19 [History] Cyclobenzaprine [Flexeril] 5 mg PO Q6H PRN 7 Days #28 tablet 01/12/19 [Rx] Allergies/Adverse Reactions: Allergy/AdvReac Type Severity Reaction Status Date / Time No Known Allergies Allergy Verified 01/04/19 11:24 Date of admission: 01/04/19 20:07 Primary care physician: Yonathan Cho MD Consults: 01/04/19 21:28 Consult to Hospitalist [CONS] Routine Consulting Provider: Hospitalist Lon Reason for Consult: Preoperative clearance Call Completed: Yes 01/05/19 20:28 Consult to Occupational Therapy [CONS] Routine Comment: Evaluate, develop and implement POC Reason for Consult: Pt. is status-post anterior cervical decompression and fusion of C6-7. Pt. unable to walk prior to procedure due to cervical disc herniation. Please assess pt. for ambulation strength, safety, stability, and possible rehabilitation/home assistive needs for post-discharge planning. Does patient have active BEDREST order?: Yes Is patient medically & hemodynamically stable?: Yes Patient assessed for mobility or mobilized this visit?: No Consult to Physical Therapy [CONS] Routine Comment: Evaluate, develop and implement POC Reason for Consult: Pt. is status-post anterior cervical decompression and fusion of C6-7. Pt. unable to walk prior to procedure due to cervical disc herniation. Please assess pt. for ambulation strength, safety, stability, and possible rehabilitation/home assistive needs for post-discharge planning. Does patient have active BEDREST order?: Yes Is patient medically & hemodynamically stable?: Yes Patient assessed for mobility or mobilized this visit?: No 01/05/19 20:34 Consult to Occupational Therapy [CONS] Routine Comment: Evaluate, develop and implement POC Reason for Consult: Postoperative rehabilitation Does patient have active BEDREST order?: No Is patient medically & hemodynamically stable?: Yes Patient assessed for mobility or mobilized this visit?: No Consult to Physical Therapy [CONS] Routine Comment: Evaluate, develop and implement POC Reason for Consult: Postoperative rehabilitation Does patient have active BEDREST order?: No Is patient medically & hemodynamically stable?: Yes Patient assessed for mobility or mobilized this visit?: No Consult to Spine Navigator [CONS] [CONS] Routine 01/06/19 10:44 Consult to Quiller Runner [CONS] Routine Reason for SW Consult: d/c planning 01/07/19 13:37 Consult to Urology [CONS] Routine Consulting Provider: Urology Stefanie Reason for Consult: Urinary retention, unable to void since Saturday on own Call Completed: Yes Discharging clinician: James Shelby Jr Anticipated date of discharge: 01/12/19 - VTE Documentation of Mechanical Device: Graduated compression elastic hosiery - Impressions ITS Impressions Cervical Spine CT 01/04/19 13:22 IMPRESSION: No acute abnormality of the cervical spine. D/ / rFeddy Mitchell MD / Freddy Mitchell MD Interpreting Provider: Freddy Mitchell MD Head CT 01/04/19 13:22 IMPRESSION: No acute intracranial abnormality. D/ / Freddy Mitchell MD / Freddy Mitchell MD Interpreting Provider: Freddy Mitchell MD Lumbar Spine CT 01/04/19 13:22 IMPRESSION: Unremarkable non-contrast CT of the lumbar spine. D/ / Ronald Moon MD / Ronald Moon MD Interpreting Provider: Ronald Moon MD Thoracic Spine CT 01/04/19 13:30 IMPRESSION: Unremarkable CT of the thoracic spine. D/ / Freddy Mitchell MD / Freddy Mitchell MD Interpreting Provider: Freddy Mitchell MD Chest X-Ray 01/04/19 13:45 IMPRESSION: Bibasilar atelectasis D/ / Abran Best MD / Abran Best MD Interpreting Provider: Abran Best MD Cervical Spine MRI 01/04/19 15:31 IMPRESSION: Multilevel degenerative disc disease throughout the cervical spine as described. Findings are greatest at C6-7 where there is a large central disc herniation with severe cord compression and canal narrowing. See above for details of each level. The findings were sent to the Radiology Results Communication Center at 7:20 pm on 01/04/2019to be communicated to a licensed caregiver. D/ / James Rolle / James Rolle Interpreting Provider: James Rolle Lumbar Spine MRI 01/04/19 15:31 IMPRESSION: Thoracic spine: Multilevel degenerative disc disease in the thoracic spine as described. See above for details of each level. There is no pathologic enhancement in the thoracic spine Lumbar spine: Multilevel degenerative disc disease throughout the lumbar spine as described. There is no pathologic enhancement in the lumbar spine. See above for details of each level D/ / James Rolle / James Rolle Interpreting Provider: James Rolle Thoracic Spine MRI 01/04/19 15:31 IMPRESSION: Thoracic spine: Multilevel degenerative disc disease in the thoracic spine as described. See above for details of each level. There is no pathologic enhancement in the thoracic spine Lumbar spine: Multilevel degenerative disc disease throughout the lumbar spine as described. There is no pathologic enhancement in the lumbar spine. See above for details of each level D/ / James Rolle / James Rolle Interpreting Provider: James Rolle Echocardiogram 01/05/19 13:00 Impressions: LVEF 60-65%. Mild left ventricular diastolic dysfunction. Normal right ventricular size and function. No significant valvular dysfunction. No pulmonary hypertension. Left Ventricular Wall Motion: Rest Echo Findings All wall segments showed normal motion. Findings: Study Quality * Technically sub-optimal due to poor echocardiographic windows. ECG Findings * Normal sinus rhythm. Left Ventricle * LVEF 60-65%. * Normal LV chamber size, wall thickness and systolic function. * Mild left ventricular diastolic dysfunction. * Definity echo contrast was not used. Right Ventricle * Normal right ventricular structure and function. Left Atrium * Normal left atrial size. Right Atrium * Normal right atrial size. Interatrial Septum * Interatrial septum not well evaluated. Aortic Valve * Aortic valve not well visualized. * No aortic stenosis. * No aortic regurgitation. Mitral Valve * Normal mitral valve structure. * No mitral stenosis. * No mitral regurgitation. Tricuspid Valve * Normal tricuspid valve structure. * No tricuspid stenosis. * Trace tricuspid regurgitation. * Estimated RA pressure is 8 mmHg. * Estimated RVSP is 23 mmHg. * No pulmonary hypertension. Pulmonic Valve * Pulmonic valve is not well visualized. * No pulmonic stenosis. * No pulmonic regurgitation. Aorta * Normally sized aortic root. Pericardium * The pericardium appears normal. IVC * The IVC is not dilated. * < 50% respiratory change. Cervical Spine X-Ray 01/05/19 17:50 IMPRESSION: Intraoperative cross-table lateral view has been obtained for localization purposes with distal tips of needles directed toward the superior endplate of C6 and anterior margin of C6-C7 intervertebral disc space as described above. D/ / 01/05/2019 18:23:05 Lucio Gambino MD / [facility] Interpreting Provider: Lucio Gambino MD Cervical Spine X-Ray 01/05/19 18:15 IMPRESSION: Single intraoperative lateral radiograph of the cervical spine as described above. D/ / Piyush Garrett MD / Piyush Garrett MD Interpreting Provider: Piyush Garrett MD Cervical Spine X-Ray 01/06/19 08:05 IMPRESSION: Anterior fusion at C6-C7 without hardware complication. D/ / Han Lou MD / Han Lou MD Interpreting Provider: Han Lou MD - Patient Status Disposition: Home, Self-Care Condition: Fair Functional capacity at discharge: uses cane/walker Overall status at discharge: patient is progressing back to baseline - Discharge Instructions Follow Up With: Yonathan Cho MD [Primary Care Provider] - - Diet and Activity Activity: as per physical therapy Diet: advance to your usual diet
--- NOTE | 2019-01-09 13:07 | Orthopedics Progress Note ---
Date of Encounter: 01/09/19 Time of Encounter: 09:30 - Assessment and Plan (1) Status post cervical spinal fusion Current Visit: Yes Status: Acute (2) Cervical stenosis of spinal canal Current Visit: Yes Status: Chronic (3) Leg weakness, bilateral Current Visit: Yes Status: Chronic (4) Spinal cord compression Current Visit: Yes Status: Chronic (5) Urinary retention Current Visit: Yes Status: Acute Continue with straight cath as per Urology instruction (6) Difficulty walking Current Visit: Yes Status: Chronic Subjective Principal diagnosis: s/p ACDF Interval history: Date of procedure: 01/05/19 Pre-op diagnosis: Cervical stenosis, spinal cord compression, leg weakness Post-op diagnosis: same Operation/Findings: Anterior cervical decompression and fusion C6-7 Patient admits to significant improvement in preoperative symptoms. Seen at bedside. Daughter, spouse, and father at bedside. Patient alert and oriented in no acute distress. Motion to b/l LE noted to be near full with exception of Right ankle with improving, though continued difficulty with dorsiflexion. Foot drop ongoing. Posterior tibial pulses intact. Sensation b/l LE intact. No calf tenderness to palpation bilaterally. Labs and vitals reviewed. Continue postoperative care. Pending discharge - awaiting approval for [place] in [facility]. Appropriate for discharge once approval obtained Objective Vital signs: Vital Signs Temp Pulse Resp BP Pulse Ox 01/09/19 10:54 98.0 F 69 17 120/78 96 01/09/19 07:14 97.6 F 68 16 128/78 97 01/09/19 04:22 97.7 F 86 18 141/89 97 01/09/19 00:09 98.0 F 65 18 124/80 96 01/08/19 18:39 98.2 F 94 17 127/75 96 01/08/19 15:11 98.7 F 76 18 128/79 95 Intake and Output 01/08/19 01/09/19 01/09/19 23:59 07:59 15:59 Intake Total 50 / 50 350 / 350 200 / 200 Output Total 400 / 400 600 / 600 Balance 50 / 50 -50 / -50 -400 / -400 Intake: Oral 50 / 50 350 / 350 200 / 200 Output: Straight Cath 400 / 400 600 / 600 Other: Meal Breakfast Percent of Meal Consumed 75% Weight 125.1 kg Patient Weight 01/09/19 23:59 Weight 125.1 kg - Labs CBC & BMP: 01/04/19 14:57 01/04/19 14:57 Labs: Abnormal lab results MPV 8.9 fL (9.4-12.4) L 01/04/19 14:57 Glucose 112 mg/dL (70-105) H 01/04/19 14:57 POC Glucose 101 mg/dL (70-99) H 01/05/19 11:58 Consult Discharge Plan - Plan Referrals: Yonathan Cho MD [Primary Care Provider] -
[2019-01-10] MEDS: *HR* HYDROcodone/Acet 5/325 mg TABLET PO PRN ×3 (00:41→19:15)
[2019-01-10] MEDS: BuPROPion XL (24 HR) 150 MG TABLET PO SCH (07:42)
--- NOTE | 2019-01-10 15:30 | Orthopedics Progress Note ---
Date of Encounter: 01/10/19 Time of Encounter: 15:29 Subjective Principal diagnosis: s/p ACDF Interval history: Patient with new complaints States his numbness is resolving his hands Wound is clean dry intact, no crepitus No hoarseness. Patient swelling well Good motion of all extremities Postoperative day #5 status post ACDF Plan discharge planning to [facility] on Saturday Objective Vital signs: Vital Signs Temp Pulse Resp BP Pulse Ox 01/10/19 12:00 98.3 F 78 16 129/78 97 01/10/19 07:24 98.5 F 75 16 137/86 97 01/09/19 23:18 98.3 F 75 17 132/81 98 01/09/19 18:43 97.9 F 79 18 141/87 98 01/09/19 15:36 98.0 F 76 18 127/83 94 Intake and Output 01/09/19 01/10/19 01/10/19 23:59 07:59 15:59 Intake Total 500 / 500 240 / 240 Output Total 600 / 600 400 / 400 1000 / 1000 Balance -100 / -100 -400 / -400 -760 / -760 Intake: Oral 500 / 500 240 / 240 Output: Straight Cath 600 / 600 400 / 400 1000 / 1000 Other: Meal Breakfast Percent of Meal Consumed 100% - Labs CBC & BMP: 01/04/19 14:57 01/04/19 14:57 Labs: Abnormal lab results MPV 8.9 fL (9.4-12.4) L 01/04/19 14:57 Glucose 112 mg/dL (70-105) H 01/04/19 14:57 POC Glucose 101 mg/dL (70-99) H 01/05/19 11:58 Consult Discharge Plan - Plan Referrals: Yonathan Cho MD [Primary Care Provider] - Prescriptions: OxyCODONE Immed Rel [Roxicodone 5 MG] 5 mg PO Q6HR PRN 5 Days #20 tablet PRN Reason: Severe Pain Docusate Sodium [Colace] 100 mg PO BID 5 Days #10 capsule
[2019-01-11] MEDS: BuPROPion XL (24 HR) 150 MG TABLET PO SCH (07:57)
[2019-01-11] MEDS: *HR* HYDROcodone/Acet 5/325 mg TABLET PO PRN ×2 (09:51→16:35)
[2019-01-12] MEDS: *HR* OxyCODONE Immed Rel 5 MG TABLET PO PRN ×2 (06:26→14:04)
[2019-01-12] MEDS: BuPROPion XL (24 HR) 150 MG TABLET PO SCH (08:05)
[2019-01-12 14:23] VITALS: BP 154/88
== END 2019-01-12 15:10 | disposition home or self-care (01) ==
LOC: EMEROOARM 13:06 → 3NENU 13:06 → SUATTDRO 20:07 → 3NENU 21:05
PROVIDERS: ADMIT Orthopaedic Surgery Orthopaedic Surgery of the Spine; ATTEND Internal Medicine